=== PATIENT | male | born 1975 | race Caucasian/White ===

== ENCOUNTER 2017-04-24 10:47 | Emergency (ER) | payer MEDICAID ==
[2017-04-24 10:57] VITALS: TEMP 97.5
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
[2017-04-24] MEDS ORDERED: IBUPROFEN 600 MG TAB PO ONE ×2 (12:12→12:13)
[2017-04-24 12:21] VITALS: BP 122/98; PULSE 70; RESP 17; O2SAT 97
== END 2017-04-24 12:21 | disposition home or self-care (01) ==
DX: S20.212A Contusion of left front wall of thorax, initial encounter (principal); F17.200 Nicotine dependence, unspecified, uncomplicated; V18.4XXA Pedal cycle driver injured in noncollision transport accident in traffic accident, initial encounter; Y92.410 Unspecified street and highway as the place of occurrence of the external cause; Y99.8 Other external cause status; Y93.55 Activity, bike riding

== ENCOUNTER 2017-09-15 10:17 | Emergency (ER) | payer MEDICAID ==
[2017-09-15] MEDS ORDERED: IBUPROFEN 600 MG TAB PO ONE (10:37)
--- NOTE | 2017-09-15 10:49 | EDPHY ---
H & P Time Seen by Provider: 09/15/17 10:30 HPI/ROS: CHIEF COMPLAINT: Right wrist pain HISTORY OF PRESENT ILLNESS: 42-year-old male presents to the emergency department with pain in his right wrist. The patient had ORIF of the right wrist [address] Lopez in [place]. He did not go to his follow-up appointment as he had a court date. [facility] and needs [facility]. The patient still has sutures in place. He is right-hand dominant. He is complaining of pain. He takes Vicodin for the pain. ROS: Denies numbness or tingling in his fingers, pain in his right elbow. No fevers or chills. Past Medical/Surgical History: Right wrist surgery 2 weeks ago Social History: and lives in [place] Smoking Status: Current every day smoker Physical Exam: On examination, the patient has running suture in place to the distal, volar aspect of his right forearm. There is no redness or warmth or signs of cellulitis or infection. No lymphangitis. He has full range of motion of his fingers. He has normal sensation to light touch with normal 2 point discrimination. Strong radial pulse at the right wrist. Nontender to palpate the right elbow. Constitutional: Initial Vital Signs Temperature (C) 36.6 C 09/15/17 10:18 Heart Rate 85 09/15/17 10:18 Respiratory Rate 97 H 09/15/17 10:18 Blood Pressure 130/93 H 09/15/17 10:18 O2 Delivery Mode Room Air Allergies/Adverse Reactions: meperidine [From Demerol] Allergy (Mild, Verified 09/15/17 10:21) sees things Home Medications: Medication Instructions Recorded Albuterol Sulfate [Proventil Hfa] 6.7 gm IH 04/24/17 Albuterol [Ventolin Hfa Inhaler] 200 puffs IH 04/24/17 MDM/Departure - MDM Medications Given: Discontinued Medications Ibuprofen (Motrin) 600 mg PO EDNOW ONE Stop: 09/15/17 10:38 Last Admin: 09/15/17 10:41 Dose: 600 mg ED Course/Re-evaluation: The sutures have been removed by the nurse. Dressing and splint will be reapplied. Patient was given ibuprofen 600 mg p.o. in the emergency department. The patient has been medically cleared for long term. The charge nurse is calling the long term to inquire about safe immobilization of his wrist that he can use while in custody. The metal has been removed from a thumb spica splint and the Velcro splint was placed on the patient's right wrist. Patient was instructed to keep this on until follow-up with his orthopedic surgeon. There are no signs of cellulitis or infection. I do not think antibiotics are indicated. - Depart Disposition: Home, Routine, Self-Care Clinical Impression: History of right wrist fracture, Right wrist pain Condition: Good Instructions: Wrist Injury (ED) Additional Instructions: Your sutures have been removed. You should keep the splint on until follow-up with your orthopedic surgeon. You have no signs of infection or cellulitis. I do not think antibiotics are indicated. You have been medically cleared for long term. Referrals: Shai Lisa MD [Medical Doctor] - As per Instructions (Orthopedic surgeon on- call)
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
[2017-09-15 11:12] VITALS: BP 136/96; PULSE 93; RESP 18; TEMP 97.7; O2SAT 94
== END 2017-09-15 11:11 | disposition home or self-care (01) ==
LOC: EEVIPCON 10:17
DX: G89.18 Other acute postprocedural pain (principal); F17.200 Nicotine dependence, unspecified, uncomplicated
CPT/HCPCS: L3908

== ENCOUNTER 2017-09-27 21:13 | Emergency (ER) | payer MEDICAID ==
[2017-09-27 21:18] VITALS: BP 134/86; PULSE 80; RESP 16; TEMP 98.1; O2SAT 95
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
[2017-09-27] MEDS ORDERED: HYDROCOD/APAP 5/325 PREPACK#6 BTL TAKEHOME ONE (21:49)
[2017-09-27] MEDS ORDERED: HYDROCODONE/APAP 5/325 TAB PO ONE (21:49)
== END 2017-09-27 22:35 | disposition home or self-care (01) ==
DX: M25.531 Pain in right wrist (principal); J45.909 Unspecified asthma, uncomplicated; F17.200 Nicotine dependence, unspecified, uncomplicated

== ENCOUNTER 2018-02-23 18:29 | Emergency (ER) | payer MEDICAID ==
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
[2018-02-23] MEDS ORDERED: traMADol 50 MG TAB PO ONE (19:37)
[2018-02-24 04:08] VITALS: BP 129/79
== END 2018-02-23 20:08 | disposition home or self-care (01) ==
DX: T84.84XA Pain due to internal orthopedic prosthetic devices, implants and grafts, initial encounter (principal); F17.200 Nicotine dependence, unspecified, uncomplicated; J45.909 Unspecified asthma, uncomplicated; Z76.0 Encounter for issue of repeat prescription; Y82.8 Other medical devices associated with adverse incidents
CPT/HCPCS: L3807